=== PATIENT | female | born 1970 | race Caucasian/White ===

== ENCOUNTER 2017-12-24 08:36 | Emergency (ER) | payer OTHER ==
[~2017-12-24] VITALS: Ht 165.1 cm; Wt 47.6 kg
[~2017-12-24 08:36] MED LIST: ACET325 PO; ACET500 PO; ALBU90OI INH; ALBU90OI6 INH; ALBU90OI61 INH; ASPI325 PO; ATOR10 PO; AZIT250 PO; BAYER CHEWABLE81 MG PO; BENZ100A PO; CEPH500 PO; CLOP75 PO; CRANBERRY PO; FOLI1 PO; HYDACE5; HYDACE5 PO; HYDACE5325 PO; IBUP400; IBUP800 PO; LISI5 PO; METF500 PO; MUPI2TO TOP; NEOCOLOTSU BOTHEARS; Norco 5-325 Ta1 EACH PO; OXYACE5T PO; PRED20 PO; Prednisone20 MG PO; RXHYD5325 PO; SULTRIDS PO; THIA100 PO; Zithromax250 MG PO
[2017-12-24] MEDS ORDERED: LORA.5 PO (08:50)
[2017-12-24] MEDS ORDERED: ALPR.25 PO (08:51)
[2017-12-24] MEDS ORDERED: TRAM50 PO (08:51)
[2017-12-24] MEDS ORDERED: Bactrim Ds Tab1 EACH PO (09:27)
[2017-12-24] MEDS ORDERED: Percocet 10-321 EACH PO (09:27)
== END 2017-12-24 10:39 | disposition home or self-care (01) ==
LOC: ER 08:36
DX: K13.0 Diseases of lips (principal); F41.9 Anxiety disorder, unspecified; I10 Essential (primary) hypertension; J44.9 Chronic obstructive pulmonary disease, unspecified; F17.210 Nicotine dependence, cigarettes, uncomplicated; Z98.51 Tubal ligation status; Z86.73 Personal history of transient ischemic attack (TIA), and cerebral infarction without residual deficits; Z88.5 Allergy status to narcotic agent; Z91.09 Other allergy status, other than to drugs and biological substances; Z79.899 Other long term (current) drug therapy
CPT/HCPCS: 96372; 99283; J1885

== ENCOUNTER 2017-12-27 00:25 | Emergency (ER) | payer OTHER ==
[~2017-12-27] VITALS: Ht 167.6 cm; Wt 49.9 kg
[~2017-12-27 00:25] MED LIST changes: +ALPR.25 PO; +Bactrim Ds Tab1 EACH PO; +LORA.5 PO; +Percocet 10-321 EACH PO; +TRAM50 PO
[2017-12-27 01:58] LABS: BASOPHILS ABSOLUTE AUTO 0.05 K/mm3 (0.00-0.23); BASOPHILS PERCENT AUTO 0 % (0-2); EOSINOPHILS ABSOLUTE AUTO 0.28 K/mm3 (0.00-0.68); EOSINOPHILS PERCENT AUTO 3 % (0-6); IMMATURE GRAN ABSOLUTE AUTO 0.04 K/mm3 (0.00-0.10); IMMATURE GRAN PERCENT AUTO 0 % (0-1); LYMPHOCYTES ABSOLUTE AUTO 1.98 K/mm3 (0.84-5.20); LYMPHOCYTES PERCENT AUTO 18 % (21-46); MONOCYTES ABSOLUTE AUTO 0.74 K/mm3 (0.16-1.47); MONOCYTES PERCENT AUTO 7 % (4-13); Mean Corpuscular HGB 26.8 pg (26.0-34.0); Mean Corpuscular HGB Conc 33.3 g/dL (31.5-36.5); Mean Corpuscular Volume 81 fL (80-100); Mean Platelet Volume 10.5 fL (9.1-12.4); NEUTROPHILS PERCENT AUTO 72 % (41-73); Platelet Count 310 K/mm3 (150-400); RDW Coefficient Variation 15.6 % (11.7-14.2); RDW Standard Deviation 45.3 fL (35.1-46.3); White Blood Cell Count 11.19 K/mm3 (4.00-11.30)
[2017-12-27 02:16] LABS: Alanine Aminotransfer (ALT/SGP 13 U/L (12-78); Albumin, Blood 3.2 g/dL (3.4-5.0); Albumin/Globulin Ratio 0.9 (0.8-1.8); Alk Phos 111 U/L (50-136); Anion Gap 9 mmol/L (6-16); Aspartate Aminotrans (AST/SGOT 6 U/L (12-37); Bilirubin, Total 0.5 mg/dL (0.1-1.0); Blood Urea Nitrogen 8 mg/dL (8-24); Bun/Creatinine Ratio 14.9 (12.0-20.0); CO2, Blood 23 mmol/L (21-32); Calcium, Blood 8.6 mg/dL (8.5-10.1); Chloride, Blood 101 mmol/L (98-108); Creatinine, Blood 0.54 mg/dL (0.40-1.00); Globulin, Blood 3.7 g/dL (2.2-4.0); Glomerular Filtration Rate >60 (60-); Glucose, Blood 402 mg/dL (70-99); Potassium, Blood 3.6 mmol/L (3.5-5.5); Sodium, Blood 133 mmol/L (136-145); Total Protein, Blood 6.9 g/dL (6.4-8.2)
[2017-12-27 02:25] LABS: Source, Urine Clean Catch
[2017-12-27 02:31] LABS: Bilirubin, Urine Neg (Neg); Blood, Urine 1+ (Neg); Glucose Qualitative, Urine 4+ (Neg); Ketones, Urine 1+ (Neg); Leukocyte Esterase, Urine Neg (Neg); Nitrite, Urine Neg (Neg); Protein, Urine Neg (Neg); Urobilinogen, Urine NORM (Normal)
[2017-12-27 02:37] LABS: Appearance, Urine Clear (Clear); Bacteria Mod /hpf; Color, Urine Yellow (P-Yellow); Red Blood Cells, Urine 0-2 /hpf (0-2); Squamous Epithelial Cells Not Seen /hpf (Few); White Blood Cells, Urine 0-2 /hpf (0-5)
[2017-12-27] MEDS ORDERED: MUPI1NAS (02:55)
[2017-12-27 03:24] LABS: U Amphetamine Screen DETECTED; U Barbituate Screen Not Detected; U Benzodiazapine Screen DETECTED; U Buprenorphine Screen Not Detected; U Cannabinoids Screen Not Detected; U Cocaine Screen Not Detected; U Methadone Screen Not Detected; U Methamphetamine Screen DETECTED; U Opiates Screen Not Detected; U Oxycodone Screen DETECTED; U Phencyclidine Screen Not Detected; U Propoxyphene Screen Not Detected
[2017-12-27] MEDS ORDERED: Bactrim Ds Tab1 EACH PO (20:24)
[2017-12-27] MEDS ORDERED: CEPH500 PO (20:24)
[2017-12-28] MEDS ORDERED: [UNRECOGNIZED DRUG - CODE] PO (14:54)
[2017-12-28] MEDS ORDERED: [UNRECOGNIZED DRUG - CODE] (14:56)
[2017-12-28] MEDS ORDERED: [UNRECOGNIZED DRUG - CODE] PO (14:58)
== END 2017-12-27 05:25 | disposition home or self-care (01) ==
LOC: ER 00:25
PROVIDERS: Emergency Medicine
DX: S00.561A Insect bite (nonvenomous) of lip, initial encounter (principal); Z88.5 Allergy status to narcotic agent; Z79.899 Other long term (current) drug therapy; I10 Essential (primary) hypertension; J44.9 Chronic obstructive pulmonary disease, unspecified; F17.210 Nicotine dependence, cigarettes, uncomplicated; W57.XXXA Bitten or stung by nonvenomous insect and other nonvenomous arthropods, initial encounter
CPT/HCPCS: 36415; 71046; 80053; 81001; 83605; 85025; 87040; 87086; 96374; 99283; J1885; P9612

== ENCOUNTER 2017-12-27 17:12 | Emergency (ER) | payer OTHER ==
[~2017-12-27] VITALS: Ht 167.6 cm; Wt 45.4 kg
[~2017-12-27 17:12] MED LIST changes: +MUPI1NAS
[2017-12-27] MEDS ORDERED: Bactrim Ds Tab1 EACH PO (20:24)
[2017-12-27] MEDS ORDERED: CEPH500 PO (20:24)
[2017-12-28] MEDS ORDERED: [UNRECOGNIZED DRUG - CODE] PO (14:54)
[2017-12-28] MEDS ORDERED: [UNRECOGNIZED DRUG - CODE] (14:56)
[2017-12-28] MEDS ORDERED: [UNRECOGNIZED DRUG - CODE] PO (14:58)
== END 2017-12-27 21:00 | disposition home or self-care (01) ==
LOC: ER 17:12
DX: L03.211 Cellulitis of face (principal); I10 Essential (primary) hypertension; J44.9 Chronic obstructive pulmonary disease, unspecified; Z88.5 Allergy status to narcotic agent; Z79.899 Other long term (current) drug therapy; F17.200 Nicotine dependence, unspecified, uncomplicated
CPT/HCPCS: 99283

== ENCOUNTER 2017-12-28 10:06 | Inpatient (IN) | payer OTHER ==
[~2017-12-28] VITALS: Ht 167.6 cm; Wt 55.8 kg
[2017-12-28 11:34] LABS: BASOPHILS ABSOLUTE AUTO 0.06 K/mm3 (0.00-0.23); BASOPHILS PERCENT AUTO 0 % (0-2); EOSINOPHILS ABSOLUTE AUTO 0.05 K/mm3 (0.00-0.68); EOSINOPHILS PERCENT AUTO 0 % (0-6); Hematocrit 35.7 % (33.0-51.0); Hemoglobin 11.7 g/dL (11.5-16.0); IMMATURE GRAN ABSOLUTE AUTO 0.04 K/mm3 (0.00-0.10); IMMATURE GRAN PERCENT AUTO 0 % (0-1); LYMPHOCYTES ABSOLUTE AUTO 1.71 K/mm3 (0.84-5.20); LYMPHOCYTES PERCENT AUTO 13 % (21-46); MONOCYTES ABSOLUTE AUTO 0.69 K/mm3 (0.16-1.47); MONOCYTES PERCENT AUTO 5 % (4-13); Mean Corpuscular HGB 26.5 pg (26.0-34.0); Mean Corpuscular HGB Conc 32.8 g/dL (31.5-36.5); Mean Corpuscular Volume 81 fL (80-100); NEUTROPHILS ABSOLUTE AUTO 11.18 K/mm3 (1.96-9.15); NEUTROPHILS PERCENT AUTO 81 % (41-73); Platelet Count 334 K/mm3 (150-400); RDW Coefficient Variation 15.5 % (11.7-14.2); RDW Standard Deviation 46.2 fL (35.1-46.3); Red Blood Cell Count 4.41 M/mm3 (3.80-5.20); White Blood Cell Count 13.73 K/mm3 (4.00-11.30)
[2017-12-28 11:48] LABS: Alanine Aminotransfer (ALT/SGP 14 U/L (12-78); Albumin, Blood 3.3 g/dL (3.4-5.0); Albumin/Globulin Ratio 0.8 (0.8-1.8); Alk Phos 120 U/L (50-136); Anion Gap 10 mmol/L (6-16); Aspartate Aminotrans (AST/SGOT 7 U/L (12-37); Bilirubin, Total 0.5 mg/dL (0.1-1.0); Blood Urea Nitrogen 7 mg/dL (8-24); Bun/Creatinine Ratio 13.3 (12.0-20.0); CO2, Blood 23 mmol/L (21-32); Calcium, Blood 8.7 mg/dL (8.5-10.1); Chloride, Blood 100 mmol/L (98-108); Creatinine, Blood 0.53 mg/dL (0.40-1.00); Glomerular Filtration Rate >60 (60-); Glucose, Blood 386 mg/dL (70-99); Potassium, Blood 3.8 mmol/L (3.5-5.5); Sodium, Blood 133 mmol/L (136-145); Total Protein, Blood 7.3 g/dL (6.4-8.2)
[2017-12-28] MEDS ORDERED: [UNRECOGNIZED DRUG - CODE] PO (14:54)
[2017-12-28] MEDS ORDERED: [UNRECOGNIZED DRUG - CODE] (14:56)
[2017-12-28] MEDS ORDERED: [UNRECOGNIZED DRUG - CODE] PO (14:58)
[2017-12-29 05:02] LABS: BASOPHILS ABSOLUTE AUTO 0.03 K/mm3 (0.00-0.23); BASOPHILS PERCENT AUTO 0 % (0-2); EOSINOPHILS PERCENT AUTO 0 % (0-6); Hematocrit 32.4 % (33.0-51.0); Hemoglobin 10.4 g/dL (11.5-16.0); IMMATURE GRAN ABSOLUTE AUTO 0.06 K/mm3 (0.00-0.10); IMMATURE GRAN PERCENT AUTO 1 % (0-1); LYMPHOCYTES ABSOLUTE AUTO 1.48 K/mm3 (0.84-5.20); LYMPHOCYTES PERCENT AUTO 13 % (21-46); MONOCYTES ABSOLUTE AUTO 0.63 K/mm3 (0.16-1.47); MONOCYTES PERCENT AUTO 5 % (4-13); Mean Corpuscular HGB 26.6 pg (26.0-34.0); Mean Corpuscular HGB Conc 32.1 g/dL (31.5-36.5); Mean Corpuscular Volume 83 fL (80-100); Mean Platelet Volume 10.5 fL (9.1-12.4); NEUTROPHILS ABSOLUTE AUTO 9.46 K/mm3 (1.96-9.15); NEUTROPHILS PERCENT AUTO 81 % (41-73); Platelet Count 340 K/mm3 (150-400); RDW Coefficient Variation 15.7 % (11.7-14.2); RDW Standard Deviation 47.2 fL (35.1-46.3); Red Blood Cell Count 3.91 M/mm3 (3.80-5.20); White Blood Cell Count 11.66 K/mm3 (4.00-11.30)
[2017-12-29 05:41] LABS: Anion Gap 9 mmol/L (6-16); Blood Urea Nitrogen 16 mg/dL (8-24); Bun/Creatinine Ratio 29.1 (12.0-20.0); CO2, Blood 21 mmol/L (21-32); Calcium, Blood 8.7 mg/dL (8.5-10.1); Chloride, Blood 107 mmol/L (98-108); Creatinine, Blood 0.55 mg/dL (0.40-1.00); Glomerular Filtration Rate >60 (60-); Glucose, Blood 266 mg/dL (70-99); Potassium, Blood 4.2 mmol/L (3.5-5.5); Sodium, Blood 137 mmol/L (136-145)
[2017-12-30 17:39] LABS: U Amphetamine Screen Not Detected; U Barbituate Screen Not Detected; U Benzodiazapine Screen DETECTED; U Buprenorphine Screen Not Detected; U Cannabinoids Screen Not Detected; U Cocaine Screen Not Detected; U Methadone Screen Not Detected; U Methamphetamine Screen Not Detected; U Opiates Screen DETECTED; U Oxycodone Screen Not Detected; U Phencyclidine Screen Not Detected; U Propoxyphene Screen Not Detected
[2017-12-31 04:58] LABS: BASOPHILS ABSOLUTE AUTO 0.03 K/mm3 (0.00-0.23); BASOPHILS PERCENT AUTO 1 % (0-2); EOSINOPHILS ABSOLUTE AUTO 0.24 K/mm3 (0.00-0.68); EOSINOPHILS PERCENT AUTO 4 % (0-6); Hematocrit 28.7 % (33.0-51.0); Hemoglobin 9.4 g/dL (11.5-16.0); IMMATURE GRAN ABSOLUTE AUTO 0.02 K/mm3 (0.00-0.10); IMMATURE GRAN PERCENT AUTO 0 % (0-1); LYMPHOCYTES ABSOLUTE AUTO 2.57 K/mm3 (0.84-5.20); LYMPHOCYTES PERCENT AUTO 41 % (21-46); MONOCYTES ABSOLUTE AUTO 0.36 K/mm3 (0.16-1.47); MONOCYTES PERCENT AUTO 6 % (4-13); Mean Corpuscular HGB 27.1 pg (26.0-34.0); Mean Corpuscular HGB Conc 32.8 g/dL (31.5-36.5); Mean Corpuscular Volume 83 fL (80-100); Mean Platelet Volume 9.9 fL (9.1-12.4); NEUTROPHILS ABSOLUTE AUTO 3.06 K/mm3 (1.96-9.15); NEUTROPHILS PERCENT AUTO 49 % (41-73); Platelet Count 316 K/mm3 (150-400); RDW Coefficient Variation 15.9 % (11.7-14.2); RDW Standard Deviation 48.4 fL (35.1-46.3); Red Blood Cell Count 3.47 M/mm3 (3.80-5.20); White Blood Cell Count 6.28 K/mm3 (4.00-11.30)
[2017-12-31 05:22] LABS: Alanine Aminotransfer (ALT/SGP 12 U/L (12-78); Albumin, Blood 2.3 g/dL (3.4-5.0); Albumin/Globulin Ratio 0.7 (0.8-1.8); Alk Phos 73 U/L (50-136); Anion Gap 8 mmol/L (6-16); Aspartate Aminotrans (AST/SGOT 7 U/L (12-37); Bilirubin, Total 0.2 mg/dL (0.1-1.0); Blood Urea Nitrogen 10 mg/dL (8-24); Bun/Creatinine Ratio 18.6 (12.0-20.0); CO2, Blood 25 mmol/L (21-32); Chloride, Blood 106 mmol/L (98-108); Creatinine, Blood 0.54 mg/dL (0.40-1.00); Globulin, Blood 3.1 g/dL (2.2-4.0); Glomerular Filtration Rate >60 (60-); Glucose, Blood 130 mg/dL (70-99); Potassium, Blood 4.1 mmol/L (3.5-5.5); Sodium, Blood 139 mmol/L (136-145); Total Protein, Blood 5.4 g/dL (6.4-8.2)
[2017-12-31] MEDS ORDERED: METF850 PO (09:16)
[2017-12-31] MEDS ORDERED: TRAM50 PO (09:16)
[2017-12-31] MEDS ORDERED: FAMO20 PO (09:17)
[2017-12-31] MEDS ORDERED: Naproxen500 MG PO (09:18)
[2017-12-31] MEDS ORDERED: Clindamycin HC300 MG PO (09:18)
[2017-12-31] MEDS ORDERED: MIRT30ST MM (09:18)
[2018-01-03] MEDS ORDERED: Bactrim Ds Tab1 EACH PO (14:15)
[2018-01-03] MEDS ORDERED: TEMA15 PO (14:16)
== END 2018-01-03 16:45 | disposition home or self-care (01) | DRG 872 ==
LOC: ER 10:06 → MEDS 14:38
PROVIDERS: Emergency Medicine; Internal Medicine
DX: A41.9 Sepsis, unspecified organism (principal); E11.9 Type 2 diabetes mellitus without complications; L03.211 Cellulitis of face; F15.10 Other stimulant abuse, uncomplicated; F17.210 Nicotine dependence, cigarettes, uncomplicated; B95.62 Methicillin resistant Staphylococcus aureus infection as the cause of diseases classified elsewhere; I10 Essential (primary) hypertension; Z86.73 Personal history of transient ischemic attack (TIA), and cerebral infarction without residual deficits; Z59.0 Homelessness; J44.9 Chronic obstructive pulmonary disease, unspecified; Z79.84 Long term (current) use of oral hypoglycemic drugs
CPT/HCPCS: 36415; 71046; 80048; 80053; 81001; 82947; 83036; 83605; 85025; 87040; 87070; 87075; 87077; 87086; 87147; 87186; 87205; 94664; 94667; 94760; 96365; 96374; 96375; 97165; 97535; 98960; 99283; 99285; 99407; G8987; G8988; G8989; J1100; J1170; J1650; J1885; J2405; J7030; P9612

== ENCOUNTER 2021-07-17 02:49 | Emergency (ER) | payer OTHER ==
[~2021-07-17] VITALS: Ht 165.1 cm; Wt 52.2 kg
[~2021-07-17 02:49] MED LIST changes: +Clindamycin HC300 MG PO; +FAMO20 PO; +METF850 PO; +MIRT30ST MM; +Naproxen500 MG PO; +TEMA15 PO; +[UNRECOGNIZED DRUG - CODE]; +[UNRECOGNIZED DRUG - CODE] PO; +[UNRECOGNIZED DRUG - CODE] PO
== END 2021-07-17 04:47 | disposition left against medical advice (07) ==
LOC: ER 02:49
DX: Z53.21 Procedure and treatment not carried out due to patient leaving prior to being seen by health care provider (principal)

== ENCOUNTER 2021-07-19 07:12 | Emergency (ER) | payer OTHER ==
[~2021-07-19] VITALS: Ht 157.5 cm; Wt 52.2 kg
== END 2021-07-19 10:09 | disposition home or self-care (01) ==
LOC: ER 07:12
DX: U07.1 COVID-19 (principal); J44.9 Chronic obstructive pulmonary disease, unspecified; I10 Essential (primary) hypertension; E11.9 Type 2 diabetes mellitus without complications; F17.210 Nicotine dependence, cigarettes, uncomplicated; Z86.73 Personal history of transient ischemic attack (TIA), and cerebral infarction without residual deficits; Z88.5 Allergy status to narcotic agent; Z88.8 Allergy status to other drugs, medicaments and biological substances; Z79.899 Other long term (current) drug therapy
CPT/HCPCS: 71045; 99283-25; M0243; Q0243

== ENCOUNTER 2021-07-29 00:15 | Emergency (ER) | payer OTHER ==
[~2021-07-29] VITALS: Ht 167.6 cm; Wt 49.9 kg
== END 2021-07-29 02:33 | disposition home or self-care (01) ==
LOC: ER 00:15
DX: U07.1 COVID-19 (principal); I10 Essential (primary) hypertension; J44.9 Chronic obstructive pulmonary disease, unspecified; F17.210 Nicotine dependence, cigarettes, uncomplicated; Z79.899 Other long term (current) drug therapy
CPT/HCPCS: 99283

== ENCOUNTER 2021-09-05 23:13 | Emergency (ER) | payer OTHER ==
[~2021-09-05] VITALS: Ht 167.6 cm; Wt 56.7 kg
[2021-09-05] MEDS ORDERED: GABA100 PO (23:21)
[2021-09-05] MEDS ORDERED: METF500 PO (23:21)
[2021-09-05] MEDS ORDERED: ATOR10 PO (23:22)
[2021-09-05] MEDS ORDERED: Lisinopril2.5 MG PO (23:22)
== END 2021-09-06 03:15 | disposition home or self-care (01) ==
LOC: ER 23:13
DX: F41.9 Anxiety disorder, unspecified (principal); F43.9 Reaction to severe stress, unspecified; Z88.5 Allergy status to narcotic agent; Z88.8 Allergy status to other drugs, medicaments and biological substances; Z79.899 Other long term (current) drug therapy; Z79.84 Long term (current) use of oral hypoglycemic drugs; I10 Essential (primary) hypertension; J44.9 Chronic obstructive pulmonary disease, unspecified; F17.200 Nicotine dependence, unspecified, uncomplicated
CPT/HCPCS: 71045; 93005; 93010; 99284-25; A9270

== ENCOUNTER 2021-09-11 20:20 | Emergency (ER) | payer OTHER ==
[~2021-09-11] VITALS: Ht 167.6 cm; Wt 49.9 kg
[~2021-09-11 20:20] MED LIST changes: +GABA100 PO; +Lisinopril2.5 MG PO
[2021-09-11 22:29] LABS: U Amphetamine Screen DETECTED; U Barbituate Screen Not Detected; U Benzodiazapine Screen Not Detected; U Buprenorphine Screen Not Detected; U Cannabinoids Screen Not Detected; U Cocaine Screen Not Detected; U Methadone Screen Not Detected; U Methamphetamine Screen DETECTED; U Opiates Screen Not Detected; U Oxycodone Screen Not Detected; U Phencyclidine Screen Not Detected; U Propoxyphene Screen Not Detected
== END 2021-09-11 23:20 | disposition home or self-care (01) ==
LOC: ER 20:20
PROVIDERS: Student in an Organized Health Care Education/Training Program
DX: M54.50 Low back pain, unspecified (principal); F15.90 Other stimulant use, unspecified, uncomplicated; Z88.5 Allergy status to narcotic agent; Z91.048 Other nonmedicinal substance allergy status; Z79.84 Long term (current) use of oral hypoglycemic drugs; Z79.899 Other long term (current) drug therapy; I10 Essential (primary) hypertension; J44.9 Chronic obstructive pulmonary disease, unspecified; F17.200 Nicotine dependence, unspecified, uncomplicated; W19.XXXA Unspecified fall, initial encounter
CPT/HCPCS: 36415; 51701; 72220; 93005; 93010; 99284-25; G0480

== ENCOUNTER 2021-09-14 21:01 | Emergency (ER) | payer OTHER ==
[~2021-09-14] VITALS: Ht 165.1 cm; Wt 49.9 kg
== END 2021-09-15 00:10 | disposition home or self-care (01) ==
LOC: ER 21:01
DX: Z00.00 Encounter for general adult medical examination without abnormal findings (principal); F15.10 Other stimulant abuse, uncomplicated; I10 Essential (primary) hypertension; J44.9 Chronic obstructive pulmonary disease, unspecified; Z86.73 Personal history of transient ischemic attack (TIA), and cerebral infarction without residual deficits; Z88.5 Allergy status to narcotic agent; Z91.048 Other nonmedicinal substance allergy status; Z79.84 Long term (current) use of oral hypoglycemic drugs; Z79.899 Other long term (current) drug therapy; F17.200 Nicotine dependence, unspecified, uncomplicated
CPT/HCPCS: 99283

== ENCOUNTER 2021-10-02 17:11 | Emergency (ER) | payer OTHER ==
[~2021-10-02] VITALS: Ht 170.2 cm; Wt 45.4 kg
[2021-10-02 17:50] LABS: BASOPHILS ABSOLUTE AUTO 0.05 K/mm3 (0.00-0.23); BASOPHILS PERCENT AUTO 1 % (0-2); EOSINOPHILS ABSOLUTE AUTO 0.24 K/mm3 (0.00-0.68); EOSINOPHILS PERCENT AUTO 3 % (0-6); Hematocrit 39.4 % (33.0-51.0); Hemoglobin 13.2 g/dL (11.5-16.0); IMMATURE GRAN ABSOLUTE AUTO 0.01 K/mm3 (0.00-0.10); IMMATURE GRAN PERCENT AUTO 0 % (0-1); LYMPHOCYTES ABSOLUTE AUTO 2.81 K/mm3 (0.84-5.20); LYMPHOCYTES PERCENT AUTO 38 % (21-46); MONOCYTES PERCENT AUTO 7 % (4-13); Mean Corpuscular HGB 28.8 pg (26.0-34.0); Mean Corpuscular HGB Conc 33.5 g/dL (31.5-36.5); Mean Corpuscular Volume 86 fL (80-100); Mean Platelet Volume 9.7 fL (9.1-12.4); NEUTROPHILS ABSOLUTE AUTO 3.75 K/mm3 (1.96-9.15); NEUTROPHILS PERCENT AUTO 51 % (41-73); Platelet Count 358 K/mm3 (150-400); RDW Coefficient Variation 12.7 % (11.7-14.2); RDW Standard Deviation 40.1 fL (35.1-46.3); Red Blood Cell Count 4.59 M/mm3 (3.80-5.20); White Blood Cell Count 7.36 K/mm3 (4.00-11.30)
[2021-10-02 18:07] LABS: Alanine Aminotransfer (ALT/SGP 17 U/L (12-78); Albumin/Globulin Ratio 0.7 (0.8-1.8); Alk Phos 192 U/L (50-136); Anion Gap 6 mmol/L (6-16); Aspartate Aminotrans (AST/SGOT 13 U/L (12-37); Bilirubin, Total 0.2 mg/dL (0.1-1.0); Blood Urea Nitrogen 12 mg/dL (8-24); Bun/Creatinine Ratio 19.6 (12.0-20.0); CO2, Blood 26 mmol/L (21-32); Calcium, Blood 9.3 mg/dL (8.5-10.1); Chloride, Blood 99 mmol/L (98-108); Creatinine, Blood 0.61 mg/dL (0.40-1.00); Globulin, Blood 4.5 g/dL (2.2-4.0); Glomerular Filtration Rate >60 (60-); Glucose, Blood 370 mg/dL (70-99); Potassium, Blood 4.1 mmol/L (3.5-5.5); Sodium, Blood 131 mmol/L (136-145); Total Protein, Blood 7.5 g/dL (6.4-8.2)
== END 2021-10-02 19:05 | disposition home or self-care (01) ==
LOC: ER 17:11
PROVIDERS: Student in an Organized Health Care Education/Training Program
DX: E11.65 Type 2 diabetes mellitus with hyperglycemia (principal); M54.9 Dorsalgia, unspecified; G89.29 Other chronic pain; Z88.5 Allergy status to narcotic agent; Z79.84 Long term (current) use of oral hypoglycemic drugs; Z79.899 Other long term (current) drug therapy; I10 Essential (primary) hypertension; J44.9 Chronic obstructive pulmonary disease, unspecified; Z86.73 Personal history of transient ischemic attack (TIA), and cerebral infarction without residual deficits; F17.210 Nicotine dependence, cigarettes, uncomplicated
CPT/HCPCS: 36415; 71045; 80053; 85025; 93005; 93010; 99284-25

== ENCOUNTER 2021-10-08 22:24 | Emergency (ER) | payer OTHER ==
[~2021-10-08] VITALS: Ht 162.6 cm; Wt 45.4 kg
[2021-10-08 23:55] LABS: Alanine Aminotransfer (ALT/SGP 16 U/L (12-78); Albumin, Blood 2.7 g/dL (3.4-5.0); Albumin/Globulin Ratio 0.6 (0.8-1.8); Alk Phos 163 U/L (50-136); Anion Gap 8 mmol/L (6-16); Aspartate Aminotrans (AST/SGOT 21 U/L (12-37); Bilirubin, Total 0.3 mg/dL (0.1-1.0); Blood Urea Nitrogen 10 mg/dL (8-24); Bun/Creatinine Ratio 21.1 (12.0-20.0); CO2, Blood 23 mmol/L (21-32); Calcium, Blood 9.6 mg/dL (8.5-10.1); Chloride, Blood 104 mmol/L (98-108); Creatinine, Blood 0.47 mg/dL (0.40-1.00); Globulin, Blood 4.8 g/dL (2.2-4.0); Glomerular Filtration Rate >60 (60-); Glucose, Blood 276 mg/dL (70-99); Potassium, Blood 3.9 mmol/L (3.5-5.5); Sodium, Blood 135 mmol/L (136-145); Total Protein, Blood 7.5 g/dL (6.4-8.2); Troponin I <0.015 ng/mL (0.000-0.040)
[2021-10-09 00:15] LABS: BASOPHILS ABSOLUTE AUTO 0.07 K/mm3 (0.00-0.23); BASOPHILS PERCENT AUTO 1 % (0-2); EOSINOPHILS ABSOLUTE AUTO 0.21 K/mm3 (0.00-0.68); EOSINOPHILS PERCENT AUTO 2 % (0-6); Hematocrit 39.7 % (33.0-51.0); Hemoglobin 13.2 g/dL (11.5-16.0); IMMATURE GRAN ABSOLUTE AUTO 0.03 K/mm3 (0.00-0.10); IMMATURE GRAN PERCENT AUTO 0 % (0-1); LYMPHOCYTES ABSOLUTE AUTO 2.57 K/mm3 (0.84-5.20); LYMPHOCYTES PERCENT AUTO 25 % (21-46); MONOCYTES ABSOLUTE AUTO 0.65 K/mm3 (0.16-1.47); MONOCYTES PERCENT AUTO 6 % (4-13); Mean Corpuscular HGB 28.6 pg (26.0-34.0); Mean Corpuscular HGB Conc 33.2 g/dL (31.5-36.5); Mean Corpuscular Volume 86 fL (80-100); Mean Platelet Volume 9.8 fL (9.1-12.4); NEUTROPHILS ABSOLUTE AUTO 6.65 K/mm3 (1.96-9.15); NEUTROPHILS PERCENT AUTO 65 % (41-73); Platelet Count 373 K/mm3 (150-400); Red Blood Cell Count 4.61 M/mm3 (3.80-5.20); White Blood Cell Count 10.18 K/mm3 (4.00-11.30)
[2021-10-09 01:18] LABS: Influenza A, PCR NEGATIVE (NEGATIVE); Influenza B, PCR NEGATIVE (NEGATIVE); Resp Syncytial Virus, PCR NEGATIVE (NEGATIVE); SARS-Cov-2 (COVID-19) PCR, MMC NEGATIVE (NEGATIVE)
[2021-10-09 01:54] LABS: U Amphetamine Screen DETECTED; U Barbituate Screen Not Detected; U Benzodiazapine Screen DETECTED; U Buprenorphine Screen Not Detected; U Cannabinoids Screen DETECTED; U Cocaine Screen Not Detected; U Methadone Screen Not Detected; U Methamphetamine Screen DETECTED; U Opiates Screen DETECTED; U Oxycodone Screen Not Detected; U Phencyclidine Screen Not Detected; U Propoxyphene Screen Not Detected
== END 2021-10-09 01:35 | disposition home or self-care (01) ==
LOC: ER 22:24
PROVIDERS: Emergency Medicine
DX: G89.4 Chronic pain syndrome (principal); M54.9 Dorsalgia, unspecified; J44.9 Chronic obstructive pulmonary disease, unspecified; I10 Essential (primary) hypertension; F17.200 Nicotine dependence, unspecified, uncomplicated; Z20.822 Contact with and (suspected) exposure to COVID-19; Z88.5 Allergy status to narcotic agent; Z79.899 Other long term (current) drug therapy; Z79.84 Long term (current) use of oral hypoglycemic drugs; Z86.73 Personal history of transient ischemic attack (TIA), and cerebral infarction without residual deficits
CPT/HCPCS: 0241U; 71045; 80053; 83880; 84484; 85025; 93005; 93010; 96372; 99285-25; J1885

== ENCOUNTER 2021-10-14 23:10 | Emergency (ER) | payer OTHER ==
[~2021-10-14] VITALS: Ht 162.6 cm; Wt 45.4 kg
[2021-10-15] LABS: Chloride (POC) 98 mmol/L (98-108); Creatinine (POC) 0.4 mg/dL (0.6-1.0); Glucose (ISTAT POC) 357 mg/dL (70-99); Hemoglobin (POC) 14.3 g/dL (12.0-16.0); Sodium (POC) 134 mmol/L (135-148); Total CO2 (POC) 27 mmol/L (21-32)
== END 2021-10-15 03:30 | disposition home or self-care (01) ==
LOC: ER 23:10
PROVIDERS: Emergency Medicine
DX: M54.9 Dorsalgia, unspecified (principal); G89.29 Other chronic pain; I10 Essential (primary) hypertension; J44.9 Chronic obstructive pulmonary disease, unspecified; Z86.73 Personal history of transient ischemic attack (TIA), and cerebral infarction without residual deficits; F17.200 Nicotine dependence, unspecified, uncomplicated; Z86.16 Personal history of COVID-19; Z88.5 Allergy status to narcotic agent; Z79.899 Other long term (current) drug therapy; Z79.84 Long term (current) use of oral hypoglycemic drugs
CPT/HCPCS: 36415; 71260; 80047; 85014; 99284-25; A9270; Q9967

== ENCOUNTER 2021-11-23 18:25 | Emergency (ER) | payer OTHER ==
[~2021-11-23] VITALS: Ht 165.1 cm; Wt 54.4 kg
[2021-11-23 19:18] LABS: BASOPHILS ABSOLUTE AUTO 0.06 K/mm3 (0.00-0.23); BASOPHILS PERCENT AUTO 1 % (0-2); EOSINOPHILS ABSOLUTE AUTO 0.18 K/mm3 (0.00-0.68); EOSINOPHILS PERCENT AUTO 2 % (0-6); Hematocrit 39.4 % (33.0-51.0); Hemoglobin 13.6 g/dL (11.5-16.0); IMMATURE GRAN ABSOLUTE AUTO 0.02 K/mm3 (0.00-0.10); IMMATURE GRAN PERCENT AUTO 0 % (0-1); LYMPHOCYTES ABSOLUTE AUTO 2.41 K/mm3 (0.84-5.20); LYMPHOCYTES PERCENT AUTO 26 % (21-46); MONOCYTES ABSOLUTE AUTO 0.64 K/mm3 (0.16-1.47); MONOCYTES PERCENT AUTO 7 % (4-13); Mean Corpuscular HGB 28.2 pg (26.0-34.0); Mean Corpuscular HGB Conc 34.5 g/dL (31.5-36.5); Mean Corpuscular Volume 82 fL (80-100); Mean Platelet Volume 9.8 fL (9.1-12.4); NEUTROPHILS ABSOLUTE AUTO 5.96 K/mm3 (1.96-9.15); NEUTROPHILS PERCENT AUTO 64 % (41-73); Platelet Count 337 K/mm3 (150-400); RDW Coefficient Variation 13.2 % (11.7-14.2); RDW Standard Deviation 39.3 fL (35.1-46.3); Red Blood Cell Count 4.83 M/mm3 (3.80-5.20); White Blood Cell Count 9.27 K/mm3 (4.00-11.30)
[2021-11-23 19:29] LABS: Alanine Aminotransfer (ALT/SGP 17 U/L (12-78); Albumin, Blood 3.5 g/dL (3.4-5.0); Alk Phos 116 U/L (50-136); Anion Gap 9 mmol/L (6-16); Aspartate Aminotrans (AST/SGOT 11 U/L (12-37); Bilirubin, Total 0.7 mg/dL (0.1-1.0); Blood Urea Nitrogen 7 mg/dL (8-24); Bun/Creatinine Ratio 16.2 (12.0-20.0); CO2, Blood 32 mmol/L (21-32); Calcium, Blood 9.8 mg/dL (8.5-10.1); Chloride, Blood 96 mmol/L (98-108); Creatinine, Blood 0.43 mg/dL (0.40-1.00); Ethanol (Alcohol), Blood, Med <3 mg/dL; Globulin, Blood 3.5 g/dL (2.2-4.0); Glomerular Filtration Rate >60 (60-); Glucose, Blood 310 mg/dL (70-99); Potassium, Blood 2.7 mmol/L (3.5-5.5); Sodium, Blood 137 mmol/L (136-145)
[2021-11-23 20:23] LABS: U Amphetamine Screen DETECTED; U Barbituate Screen Not Detected; U Benzodiazapine Screen Not Detected; U Buprenorphine Screen Not Detected; U Cannabinoids Screen Not Detected; U Cocaine Screen Not Detected; U Methadone Screen Not Detected; U Methamphetamine Screen DETECTED; U Opiates Screen Not Detected; U Oxycodone Screen Not Detected; U Phencyclidine Screen Not Detected; U Propoxyphene Screen Not Detected
[2021-11-23] MEDS ORDERED: POTA20PAC PO (21:47)
== END 2021-11-23 23:00 | disposition home or self-care (01) ==
LOC: ER 18:25
PROVIDERS: Emergency Medicine
DX: F15.10 Other stimulant abuse, uncomplicated (principal); E87.6 Hypokalemia; Z88.5 Allergy status to narcotic agent; Z88.8 Allergy status to other drugs, medicaments and biological substances; Z79.899 Other long term (current) drug therapy; I10 Essential (primary) hypertension; J44.9 Chronic obstructive pulmonary disease, unspecified; Z86.73 Personal history of transient ischemic attack (TIA), and cerebral infarction without residual deficits; F17.200 Nicotine dependence, unspecified, uncomplicated
CPT/HCPCS: 51701; 70450; 80053; 85025; 96365; 96375; 99285-25; A9270; G0480; J2310; J3480; J7030

== ENCOUNTER 2021-12-08 09:57 | Emergency (ER) | payer OTHER ==
[~2021-12-08 09:57] MED LIST changes: +POTA20PAC PO
[2021-12-08] MEDS ORDERED: CLOTRIMAZOLE AF1524 TOP (16:58)
[2021-12-08] MEDS ORDERED: Ultram50 MG PO (19:48)
[2021-12-08] MEDS ORDERED: METF500 PO (19:48)
== END 2021-12-08 10:15 | disposition left against medical advice (07) ==
LOC: ER 09:57
DX: Z53.21 Procedure and treatment not carried out due to patient leaving prior to being seen by health care provider (principal)

== ENCOUNTER 2022-04-30 17:28 | Emergency (ER) | payer OTHER ==
[~2022-04-30] VITALS: Ht 170.2 cm; Wt 41.7 kg
[~2022-04-30 17:28] MED LIST changes: +BASAGLAR K100 UNIT/3 SC; +CLOTRIMAZOLE AF1524 TOP; +GABAPENTIN600 MG PO; +GLIP5ER PO; +LIDO700A20 TOP; +MIRT15 PO; +OLAN20 MM; +OMEP20ER PO; +Ultram50 MG PO; +[UNRECOGNIZED DRUG - CODE] PO
[2022-04-30 18:12] LABS: BASOPHILS ABSOLUTE AUTO 0.05 K/mm3 (0.00-0.23); BASOPHILS PERCENT AUTO 1 % (0-2); EOSINOPHILS ABSOLUTE AUTO 0.45 K/mm3 (0.00-0.68); EOSINOPHILS PERCENT AUTO 4 % (0-6); Hematocrit 38.5 % (33.0-51.0); Hemoglobin 12.3 g/dL (11.5-16.0); IMMATURE GRAN ABSOLUTE AUTO 0.04 K/mm3 (0.00-0.10); IMMATURE GRAN PERCENT AUTO 0 % (0-1); LYMPHOCYTES ABSOLUTE AUTO 2.39 K/mm3 (0.84-5.20); LYMPHOCYTES PERCENT AUTO 22 % (21-46); MONOCYTES ABSOLUTE AUTO 0.74 K/mm3 (0.16-1.47); MONOCYTES PERCENT AUTO 7 % (4-13); Mean Corpuscular HGB 27.8 pg (26.0-34.0); Mean Corpuscular HGB Conc 31.9 g/dL (31.5-36.5); Mean Corpuscular Volume 87 fL (80-100); Mean Platelet Volume 9.3 fL (9.1-12.4); NEUTROPHILS ABSOLUTE AUTO 7.08 K/mm3 (1.96-9.15); NEUTROPHILS PERCENT AUTO 66 % (41-73); Platelet Count 306 K/mm3 (150-400); RDW Coefficient Variation 13.6 % (11.7-14.2); RDW Standard Deviation 43.2 fL (35.1-46.3); Red Blood Cell Count 4.42 M/mm3 (3.80-5.20); White Blood Cell Count 10.75 K/mm3 (4.00-11.30)
[2022-04-30 18:15] LABS: Source, Urine Foley catheter
[2022-04-30 18:28] LABS: Appearance, Urine Cloudy (Clear); Bilirubin, Urine Neg (Neg); Blood, Urine 3+ (Neg); Color, Urine Yellow (P-Yellow); Glucose Qualitative, Urine Neg (Neg); Ketones, Urine Neg (Neg); Leukocyte Esterase, Urine Neg (Neg); Nitrite, Urine Neg (Neg); Protein, Urine 1+ (Neg); Urobilinogen, Urine NORM (Normal)
[2022-04-30 18:28] LABS: Albumin, Blood 2.8 g/dL (3.4-5.0); Albumin/Globulin Ratio 0.7 (0.8-1.8); Bilirubin, Total 0.2 mg/dL (0.1-1.0); Bun/Creatinine Ratio 30.4 (12.0-20.0); Calcium, Blood 9.1 mg/dL (8.5-10.1); Creatinine, Blood 0.53 mg/dL (0.40-1.00); Globulin, Blood 3.8 g/dL (2.2-4.0); Potassium, Blood 4.3 mmol/L (3.5-5.5); Total Protein, Blood 6.6 g/dL (6.4-8.2)
[2022-04-30] MEDS ORDERED: ALBU8HFA2 INH (18:38)
[2022-04-30] MEDS ORDERED: INSULANI (18:38)
[2022-04-30 18:56] LABS: Red Blood Cells, Urine 0-2 /hpf (0-2)
[2022-04-30 18:57] LABS: Amorphous Mod (0-Heavy); Bacteria Many /hpf; Squamous Epithelial Cells Rare /hpf (Few); Transitional Epithelial Cells Rare /hpf (0-Rare)
[2022-04-30 18:58] LABS: Triple Phosphate Crystals Many /hpf
[2022-04-30] MEDS ORDERED: CEFD300 PO (19:24)
== END 2022-04-30 20:32 | disposition home or self-care (01) ==
LOC: ER 17:28
PROVIDERS: Student in an Organized Health Care Education/Training Program
DX: N39.0 Urinary tract infection, site not specified (principal); R33.9 Retention of urine, unspecified; I10 Essential (primary) hypertension; J44.9 Chronic obstructive pulmonary disease, unspecified; Z88.5 Allergy status to narcotic agent; Z79.899 Other long term (current) drug therapy; F17.200 Nicotine dependence, unspecified, uncomplicated
CPT/HCPCS: 36415; 51702; 51798; 70450; 71045; 80053; 81001; 85025; A9270; J7030

== ENCOUNTER 2022-05-03 20:17 | Emergency (ER) | payer OTHER ==
[~2022-05-03] VITALS: Ht 172.7 cm; Wt 63.5 kg
[~2022-05-03 20:17] MED LIST changes: +ALBU8HFA2 INH; +CEFD300 PO; +INSULANI
[2022-05-03 20:42] LABS: BASOPHILS ABSOLUTE AUTO 0.05 K/mm3 (0.00-0.23); BASOPHILS PERCENT AUTO 1 % (0-2); EOSINOPHILS ABSOLUTE AUTO 0.36 K/mm3 (0.00-0.68); EOSINOPHILS PERCENT AUTO 5 % (0-6); Hematocrit 35.6 % (33.0-51.0); Hemoglobin 11.7 g/dL (11.5-16.0); IMMATURE GRAN ABSOLUTE AUTO 0.02 K/mm3 (0.00-0.10); IMMATURE GRAN PERCENT AUTO 0 % (0-1); LYMPHOCYTES ABSOLUTE AUTO 2.47 K/mm3 (0.84-5.20); LYMPHOCYTES PERCENT AUTO 32 % (21-46); MONOCYTES ABSOLUTE AUTO 0.75 K/mm3 (0.16-1.47); MONOCYTES PERCENT AUTO 10 % (4-13); Mean Corpuscular HGB 28.2 pg (26.0-34.0); Mean Corpuscular HGB Conc 32.9 g/dL (31.5-36.5); Mean Corpuscular Volume 86 fL (80-100); Mean Platelet Volume 9.9 fL (9.1-12.4); NEUTROPHILS ABSOLUTE AUTO 4.12 K/mm3 (1.96-9.15); NEUTROPHILS PERCENT AUTO 53 % (41-73); Platelet Count 321 K/mm3 (150-400); RDW Coefficient Variation 14.1 % (11.7-14.2); RDW Standard Deviation 44.2 fL (35.1-46.3); Red Blood Cell Count 4.15 M/mm3 (3.80-5.20); White Blood Cell Count 7.77 K/mm3 (4.00-11.30)
[2022-05-03 20:53] LABS: Albumin, Blood 2.5 g/dL (3.4-5.0); Albumin/Globulin Ratio 0.7 (0.8-1.8); Bilirubin, Total 0.1 mg/dL (0.1-1.0); Bun/Creatinine Ratio 34.1 (12.0-20.0); Calcium, Blood 9.2 mg/dL (8.5-10.1); Creatinine, Blood 0.5 mg/dL (0.40-1.00); Globulin, Blood 3.8 g/dL (2.2-4.0); Potassium, Blood 4.3 mmol/L (3.5-5.5); Total Protein, Blood 6.3 g/dL (6.4-8.2)
[2022-05-03 21:20] LABS: Source, Urine Voided
[2022-05-03 21:36] LABS: Bilirubin, Urine Neg (Neg); Blood, Urine 4+ (Neg); Glucose Qualitative, Urine 1+ (Neg); Ketones, Urine 1+ (Neg); Leukocyte Esterase, Urine 1+ (Neg); Nitrite, Urine Neg (Neg); Protein, Urine 1+ (Neg); Specific Gravity, Urine 1.025 (1.003-1.022); Urobilinogen, Urine NORM (Normal)
[2022-05-03 21:51] LABS: Color, Urine Yellow (P-Yellow)
[2022-05-03 21:52] LABS: Appearance, Urine Hazy (Clear)
[2022-05-03 21:53] LABS: Amorphous Heavy (0-Heavy); Bacteria Few /hpf; Red Blood Cells, Urine 0-2 /hpf (0-2); Squamous Epithelial Cells Few /hpf (Few)
== END 2022-05-04 00:21 | disposition home or self-care (01) ==
LOC: ER 20:17
PROVIDERS: Emergency Medicine
DX: R10.31 Right lower quadrant pain (principal); I10 Essential (primary) hypertension; E11.9 Type 2 diabetes mellitus without complications; J44.9 Chronic obstructive pulmonary disease, unspecified; F17.200 Nicotine dependence, unspecified, uncomplicated; Z88.5 Allergy status to narcotic agent; Z88.2 Allergy status to sulfonamides; Z79.4 Long term (current) use of insulin; Z79.899 Other long term (current) drug therapy; Z79.84 Long term (current) use of oral hypoglycemic drugs; Z86.73 Personal history of transient ischemic attack (TIA), and cerebral infarction without residual deficits
CPT/HCPCS: 51702; 74177; 80053; 81001; 83690; 85025; 93005; 93010; 99284-25; Q9967

== ENCOUNTER 2022-05-04 23:43 | Emergency (ER) | payer OTHER ==
[~2022-05-04] VITALS: Ht 167.6 cm; Wt 40.8 kg
[2022-05-05 00:48] LABS: Source, Urine Foley catheter
[2022-05-05 00:54] LABS: Appearance, Urine Clear (Clear); Bilirubin, Urine Neg (Neg); Blood, Urine 4+ (Neg); Color, Urine Yellow (P-Yellow); Glucose Qualitative, Urine Neg (Neg); Ketones, Urine Neg (Neg); Leukocyte Esterase, Urine 1+ (Neg); Nitrite, Urine Neg (Neg); Protein, Urine 1+ (Neg); Specific Gravity, Urine 1.015 (1.003-1.022); Urobilinogen, Urine NORM (Normal)
[2022-05-05 00:56] LABS: Bacteria Few /hpf; Squamous Epithelial Cells Few /hpf (Few)
== END 2022-05-05 03:18 | disposition home or self-care (01) ==
LOC: ER 23:43
PROVIDERS: Emergency Medicine
DX: R33.9 Retention of urine, unspecified (principal); I10 Essential (primary) hypertension; J44.9 Chronic obstructive pulmonary disease, unspecified; E11.9 Type 2 diabetes mellitus without complications; F17.200 Nicotine dependence, unspecified, uncomplicated
CPT/HCPCS: 51702; 51798; 81001; 87077; 87086; 87186; 99283-25

== ENCOUNTER → 2022-05-15 | Outpatient (CLI) | payer OTHER ==
[2022-05-15 19:31] LABS: Creatinine Urine 52.2 mg/dL (27.00-270.00); Protein, Urine Quantitative 61.9 mg/dL (0.0-11.9)
== END | disposition home or self-care (01) ==
LOC: LAB 14:00 → LAB SHORT 14:00 → LAB FUT 04-11 10:55 → EDSTATUS 04-11 10:55
PROVIDERS: Internal Medicine Nephrology
DX: E11.21 Type 2 diabetes mellitus with diabetic nephropathy (principal); E11.22 Type 2 diabetes mellitus with diabetic chronic kidney disease; N18.2 Chronic kidney disease, stage 2 (mild); D63.1 Anemia in chronic kidney disease; D50.9 Iron deficiency anemia, unspecified; N25.81 Secondary hyperparathyroidism of renal origin; E55.9 Vitamin D deficiency, unspecified; E78.00 Pure hypercholesterolemia, unspecified; D51.8 Other vitamin B12 deficiency anemias; D52.8 Other folate deficiency anemias; R76.9 Abnormal immunological finding in serum, unspecified; R94.5 Abnormal results of liver function studies; R94.6 Abnormal results of thyroid function studies
CPT/HCPCS: 81050; 82043; 82570; 84156

== ENCOUNTER 2022-05-21 14:58 | Emergency (ER) | payer OTHER ==
[~2022-05-21] VITALS: Ht 162.6 cm; Wt 52.2 kg
[2022-05-21] MEDS ORDERED: MIRALAX17 GM PO (15:19)
[2022-05-21] MEDS ORDERED: TAMS.4ER PO (15:19)
== END 2022-05-21 18:15 | disposition home or self-care (01) ==
LOC: ER 14:58
DX: R53.83 Other fatigue (principal); R53.1 Weakness; I10 Essential (primary) hypertension; J44.9 Chronic obstructive pulmonary disease, unspecified; E11.9 Type 2 diabetes mellitus without complications; F17.200 Nicotine dependence, unspecified, uncomplicated; Z79.899 Other long term (current) drug therapy; Z79.4 Long term (current) use of insulin
CPT/HCPCS: A9270

== ENCOUNTER 2022-07-19 05:47 | Inpatient (IN) | payer OTHER ==
[~2022-07-19] VITALS: Ht 165.1 cm; Wt 47.8 kg
[~2022-07-19 05:47] MED LIST changes: +GABA800 PO; -GABAPENTIN600 MG PO; +GLUCOPHAGE1000 M1 PO; +MIRALAX17 GM PO; -MIRT15 PO; +MIRT30 PO; +TAMS.4ER PO; -[UNRECOGNIZED DRUG - CODE] PO
[2022-07-19 06:24] LABS: Hematocrit 42.6 % (33.0-51.0); Hemoglobin 12.6 g/dL (11.5-16.0); Mean Corpuscular HGB 28.8 pg (26.0-34.0); Mean Corpuscular HGB Conc 29.6 g/dL (31.5-36.5); Mean Corpuscular Volume 97 fL (80-100); Mean Platelet Volume 9.8 fL (9.1-12.4); NRBC ABSOLUTE 0.04 K/mm3 (0.00-0.02); NRBC Auto 0.1 /100 WBC (0.0-0.2); Platelet Count 419 K/mm3 (150-400); RDW Coefficient Variation 13.9 % (11.7-14.2); RDW Standard Deviation 50.2 fL (35.1-46.3); Red Blood Cell Count 4.38 M/mm3 (3.80-5.20); White Blood Cell Count 28.14 K/mm3 (4.00-11.30)
[2022-07-19 06:26] LABS: Source, Urine Clean Catch
[2022-07-19 06:28] LABS: Base Excess Venous -16.6 mmol/L; Bicarbonate Venous 12.1 mmol/L (24.0-30.0); PCO2 Venous 52.7 mmHg (38-42); PO2 Venous 72.4 mmHg (38-42)
[2022-07-19 06:29] LABS: Albumin, Blood 3.1 g/dL (3.4-5.0); Albumin/Globulin Ratio 0.7 (0.8-1.8); Bilirubin, Total 0.2 mg/dL (0.1-1.0); Bun/Creatinine Ratio 35.2 (12.0-20.0); Calcium, Blood 9.5 mg/dL (8.5-10.1); Creatinine, Blood 0.83 mg/dL (0.40-1.00); Globulin, Blood 4.3 g/dL (2.2-4.0); Potassium, Blood 4.8 mmol/L (3.5-5.5); Total Protein, Blood 7.4 g/dL (6.4-8.2); pH Blood Venous 7.04 (7.34-7.37)
[2022-07-19 06:37] LABS: Appearance, Urine Hazy (Clear); Bilirubin, Urine Neg (Neg); Blood, Urine 5+ (Neg); Color, Urine Yellow (P-Yellow); Glucose Qualitative, Urine 3+ (Neg); Ketones, Urine Neg (Neg); Leukocyte Esterase, Urine Neg (Neg); Nitrite, Urine Neg (Neg); Protein, Urine 1+ (Neg); Urobilinogen, Urine NORM (Normal)
[2022-07-19 06:55] LABS: BAND PERCENT MAN 3 % (0-8); BASOPHILS ABSOLUTE MAN 0.28 K/mm3 (0.00-0.23); BASOPHILS PERCENT MAN 1 % (0-2); EOSINOPHILS ABSOLUTE MAN 0.56 K/mm3 (0.00-0.68); EOSINOPHILS PERCENT MAN 2 % (0-6); LYMPHOCYTES ABSOLUTE MAN 4.78 K/mm3 (0.84-5.20); LYMPHOCYTES PERCENT MAN 17 % (21-46); METAMYELOCYTE ABSOLUTE MAN 0.28 K/mm3 (0.00-0.00); METAMYELOCYTE PERCENT MAN 1 % (0-0); MONOCYTES ABSOLUTE MAN 2.25 K/mm3 (0.16-1.47); MONOCYTES PERCENT MAN 8 % (4-13); MYELOCYTE ABSOLUTE MAN 0.84 K/mm3 (0.00-0.00); MYELOCYTE PERCENT MAN 3 % (0-0); NEUTROPHILS ABSOLUTE MAN 19.13 K/mm3 (1.96-9.15); SEG NEUTROPHILS PERCENT MAN 65 % (41-73); TOTAL CELLS COUNTED 100
[2022-07-19 07:01] LABS: Red Blood Cells, Urine 25-50 /hpf (0-2); Squamous Epithelial Cells Mod /hpf (Few)
[2022-07-19 07:02] LABS: Bacteria Few /hpf
[2022-07-19 07:37] LABS: Influenza A, PCR NEGATIVE (NEGATIVE); Influenza B, PCR NEGATIVE (NEGATIVE); Resp Syncytial Virus, PCR NEGATIVE (NEGATIVE); SARS-Cov-2 (COVID-19) PCR, MMC NEGATIVE (NEGATIVE)
[2022-07-19] MEDS ORDERED: TRAM50 PO (10:29)
[2022-07-19] MEDS ORDERED: ACET500 PO (10:30)
[2022-07-19] MEDS ORDERED: NAPR500 PO (10:32)
[2022-07-19] MEDS ORDERED: SERT50 PO (10:33)
[2022-07-19 11:05] LABS: Source, Urine Foley catheter
[2022-07-19 11:20] LABS: Bilirubin, Urine Neg (Neg); Blood, Urine 5+ (Neg); Glucose Qualitative, Urine 3+ (Neg); Ketones, Urine Neg (Neg); Leukocyte Esterase, Urine Neg (Neg); Nitrite, Urine Neg (Neg); Protein, Urine 2+ (Neg); Urobilinogen, Urine NORM (Normal)
[2022-07-19 11:32] LABS: Appearance, Urine Hazy (Clear); Color, Urine Yellow (P-Yellow); Squamous Epithelial Cells Few /hpf (Few); White Blood Cells, Urine 0-2 /hpf (0-5)
[2022-07-19 11:33] LABS: Amorphous Mod (0-Heavy); Bacteria Rare /hpf
--- NOTE | 2022-07-19 12:15 | NUR ---
RECEIVED PT FROM ER VIA [facility] [employer]. PT APPEARS DROWSY, BUT AWAKENS TO VOICE. PT ORIENTED TO SELF AND FOLLOWS SOME SIMPLE COMMANDS. HX-CVA, DEMENTIA, HTN, DM 11, VATS TO LEFT LUNG, RIGHT LOBECTOMY, COPD, FORMER SMOKER AND [employer] USER. PT LIVES AT [facility]. PT HAS RESIDUAL LEFT SIDED WEAKNESS FROM HER STROKE AND IS OVERALL VERY WEAK. ECG SHOWS ST WITH RATE 120'S. SBP 100-110'S. DP/PT PULSES FAINT. NO NOTED EDEMA. LUNGS DIMINISHED IN THE BASES. RR 22-28. SATS>90% ON RA. ABDOMEN IS DISTENDED AND FIRM WITH HYPERACTIVE BT'S X 4. PT INCONTINENT OF A SMEAR OFR BROWN, PASTY STOOL. PENNIE CARE DONE AND DRY FLOW PADS PLACED TO BED. PT HAS SCATTERED BRUISES, BUT NO NOTED SKIN BREAKDOWN. CBG 256 INSULIN DRIP @ 4 UNITS/HR. PT FAMILY ORIENTED TO ROOM AND ICU PROCEDURE.
[2022-07-19 13:00] LABS: PCO2 Arterial 34.4 mmHg (35-45); PO2 Arterial 77.6 mmHg (80-100); pH Blood Arterial 7.33 (7.35-7.45)
--- NOTE | 2022-07-19 15:15 | NUR ---
CBG 167-INSULIN DRIP IS OFF. TEMP 101.2 HR TRENDING 130'S. MAPR TRENDING 60-65. DR. STEPHENSON AWARE AND FULL UPDATE GIVEN. PT IS PCU STATUS.
--- NOTE | 2022-07-19 16:00 | NUR ---
PT REMAINS FEBRILE AND TACHYCARDIC. MED WITH TYLENOL PO.
--- NOTE | 2022-07-19 18:05 | NUR ---
TEMP 101.2 DESPITE TYLENOL. HR 130'S SBP 70'S. DR. STEPHENSON GIVEN FULL UPDATE. LR 1000 CC BOLUS INITIATED.
[2022-07-19 21:07] LABS: PCO2 Arterial 30.9 mmHg (35-45); PO2 Arterial 70.2 mmHg (80-100); pH Blood Arterial 7.38 (7.35-7.45)
[2022-07-19 21:45] LABS: Albumin, Blood 1.8 g/dL (3.4-5.0); Anion Gap 12 mmol/L (6-16); Blood Urea Nitrogen 53 mg/dL (8-24); CO2, Blood 20 mmol/L (21-32); Chloride, Blood 112 mmol/L (98-108); Creatinine, Blood 1.04 mg/dL (0.40-1.00); Glomerular Filtration Rate 65 (60-); Glucose, Blood 212 mg/dL (70-99); Phosphorus, Blood 4.9 mg/dL (2.5-4.9); Sodium, Blood 144 mmol/L (136-145)
[2022-07-19 21:46] LABS: Calcium, Blood 7.2 mg/dL (8.5-10.1)
--- NOTE | 2022-07-19 21:56 | NUR ---
ASSUMPTION OF CARE REPORT GIVEN AT THE BEDSIDE WITHCATHERINE SILVER. PT IS PALE RESTING IN BED, ON ROOM AIR. PT HAS LR INFUSING ALONG WITH A SODIUM BICARB GTT AT 75 ML/HR. PT IS NO LOONGER ON AN INSULIN GTT. PT IS NOTED TO BE TACHYCARDIC AND BLOOD PRESSURES ARE SOFT. AROUND 2100 BP BECAME INADEQUATE. CALL WAS PLACED TO HOSPITALIST CHANDLER AND WAS GIVEN ORDERS FOR NS BOLUS AND INFUSION. DR. VALLE IS FOLLOWING THE CASE AND HE WAS GIVEN A CALL CONCERNING THIS AND HE AGREED WITH THIS TREATMENT BUT ALSO WOULD LIKE TO DECREASE THE BICARB DRIP TO 50 ML/HR. STAT ABG AND RFP ORDERED AND RESULTS CALLED TO DR. VALLE AT 2145. NO NEW ORDERS GIVEN AT THIS TIME. DR VALLE WOULD LIKE AN ABG TO FURTHER ASSESS HER IN THE AM. PT HAS A DOUBLE LUMED POWERGLIDE IN PLACE. DRESSING IS CDI AND LINE IS PATENT AND SECURE. ALANIS CATHETER IN PLACE IS NOTED TO HAVE URINE ACACIA IN COLOR AND LOTS OF SEDIMENT. PT ALSO HAVING SEVERE DIARRHEA AND IS HAVING EXCORIATION FROM THIS. RECTAL TUBE PLACED BY ANGELY SILVER. BROWN, LIQUID STOOL IS NOTED IN THE RECTAL TUBE. PT PROGNOSIS IS GUARDED AT THIS TIME DUE TO PT VITAL SIGNS AND PHYSICAL PRESENTATION.
--- NOTE | 2022-07-19 22:41 | NUR ---
CONTACT PROVIDER PT RECEIVED NS BOLUS PER DR ARTEAGA AND HAS NS @ 100 BUT PT CONTINUES TO DROP BLOOD PRESSURE. DR ARTEAGA NOTIFIED AT 2234 AND SPOKE TO HIM ABOUT THE PT/FAMILY WISHES AND POLST FORM THAT ALLOWS FOR ANTIBITOICS/FLUIDS BUT THE FAMILY WOULD NOT LIKE TO ADVANCE CARE AT THIS TIME, SUCH USING VASOPRESSORS. DR ARTEAGA ASKS TO GIVE PT AN ADDITIONAL 500ML NS BOLUS. PT STATES SHE HAS A HEADACHE. PT GIVEN PO TYLENOL FOR THIS. IF PT VITALS DO NOT IMPROVE THIS RN WILL CALL THE FAMILY AND UPDATE THEM ON THE SITUATION AND DETERMINE WHAT THEIR WISHES ARE FOR TREATMENT GOING FORWARD. CALLED RFP AND ABG RESULTS AT 2134. NO CHANGES OR FURTHER ORDERS RECEIVED. WILL CONTINUE TO MONITOR.
--- NOTE | 2022-07-19 23:45 | NUR ---
PROVIDER NOTIFICATION DR. ARTEAGA CONTACTED CONCERNING PT BP. PT WAS ORDERED ANOTHER 500 ML NS BOLUS. MD ALSO ORDERED MIDODRINE 2.5 MG TID, WITH FIRST DOSE STARTING NOW. DOSE GIVEN TO PT WITHOUT ISSUE. WILL CONTINUE TO MONITOR.
--- NOTE | 2022-07-20 01:16 | NUR ---
PROVIDER NOTIFICATIONDR. DR. LICEA CALLED CONCERNING PT BP CONTINUING TO DECLINE. PT 70S/50S AT THIS TIME. MD AGAIN ORDERED ANOTHER 500 NS BOLUS AND MENTIONED THE USE OF LEVOPHED. INFORMED MD THAT PT FAMILY DOES NOT WISH THE ESCALATE CARE. PT HAS EXISITING POLST THAT STATES PT DOES NOT WANT MEASURES OUTSIDE OF FLUIDS, ANTIBIOTICS ETC. WILL ADMINISTER THIS AND CONTINUE TO MONITOR.
[2022-07-20 03:59] LABS: Hematocrit 33.8 % (33.0-51.0); Hemoglobin 11.3 g/dL (11.5-16.0)
[2022-07-20 04:17] LABS: Albumin, Blood 1.8 g/dL (3.4-5.0); Anion Gap 11 mmol/L (6-16); Blood Urea Nitrogen 60 mg/dL (8-24); Bun/Creatinine Ratio 51.3 (12.0-20.0); CO2, Blood 18 mmol/L (21-32); Chloride, Blood 114 mmol/L (98-108); Creatinine, Blood 1.17 mg/dL (0.40-1.00); Glomerular Filtration Rate 56 (60-); Glucose, Blood 183 mg/dL (70-99); Magnesium, Blood 2.2 mg/dL (1.6-2.4); Potassium, Blood 4.8 mmol/L (3.5-5.5); Sodium, Blood 143 mmol/L (136-145)
--- NOTE | 2022-07-20 06:34 | NUR ---
SHIFT SUMMARY PT HAS BEEN TACHYCARDIC AND HYPOTENSIVE MOST OF THE NIGHT. PT HAS BEEN ON A BICARB DRIP PER DR VALLE TO CORRECT SOME METABOLIC ACIDOSIS. PT RECEIVED SEVERAL 500 ML NS BOLUSES THROUGHOUT THE NIGHT BECAUSE ACCORDING TO DOCTOR'S NOTES PT WAS NOT TO BE TREATED WITH VASOPRESSORS OR OTHER MEASURES OUTSIDE OF FLUIDS AND ANTIBIOTICS. CHARGE REACHED OUT TO STAFFING [facility] F[facility] WHERE SHE STAYS FOR COPY OF SAID POLST, BUT WERE UNABLE TO PROVIDE ONE. DAUGHTER, JOSE STEPHENSON, CALLED AND UPDATE WAS GIVEN. JOSE STATES SHE IS POA, BUT THERE IS NO DOCUMENTATION STATING THIS AT THIS TIME. EDUCATED DAUGHTER ON THE NEED FOR SIBLINGS TO COMMUNICATE AND DISCUSS GOALS OF CARE FOR THIS PATIENT AND CODE STATUS. CHARGE IS AWARE OF THIS CONCERN. PT HAS BEEN ALERT, BUT CONFUSED WHICH IS THIS PT'S BASELINE. PT VERY DECONDITIONED AND REQUIRES ASSISTANCE TURNING. ALANIS AND RECTAL TUBE IN PLACE. REPORT TO BE GIVEN TO DAYSHIFT NURSE WHEN AVAILABLE.
[2022-07-20 06:43] LABS: PCO2 Arterial 26.7 mmHg (35-45); PO2 Arterial 65.8 mmHg (80-100); pH Blood Arterial 7.38 (7.35-7.45)
--- NOTE | 2022-07-20 08:00 | NUR ---
PT AWAKE AND ALERT, BUT ORIENTED TO SELF ONLY. PT FOLLOWS SOME SIMPLE COMMANDS. LEFT SIDED WEAKNESS CONTINUES-THIS IS PT BASELINE. PT IS GENERALLY WEAK. ECG SHOWS ST WITH RATE 120'S. TEMP 99.9. MAP TRENDING >65. DP/PT PULSES FAINT. LUNGS DIMINISHED IN THE BASES. NO NOTED COUGH. SATS>90% ON RA. ABDOMEN REMAINS DISTENDED AND FIRM WITH HYPERACTIVE BT'S X 4. RECTAL TUBE CONTINUES TO DRAIN MODERATE AMOUNT OF BROWN, LIQUID STOOL. ALANIS WITH SMALL AMOUNT OF TEA COLORED URINE WITH SEDIMENT. SKIN TO ANUS AND BUTTOCKS SLIGHTLY RED-CALAZIME APPLIED AND PT REPOSITIONED TO LEFT SIDE OFF OF THE RED AREA. PT FAMILY UPDATED.
--- NOTE | 2022-07-20 10:15 | NUR ---
PT MOANING AND CRYING OUT. PT STATES "HELP ME! TAKE ALL THIS OFF!" PT PULLED OUT HER EXTENDED DWELL CATHETER AND BLOOD ALL OVER HER AND THE BED. PT GIVEN BED BATH AND LINEN CHANGE COMPLETED. PT CRYING DURING THE BATH AND LINEN CHANGE. PT STATES THAT SHE HURTS EVERYWHERE. DR. STEPHENSON GIVEN UPDATE. HE PLANS TO CALL THE FAMILY. THE PLAN IS TO TRANSITION PT TO COMFORT CARE TO HONOR HER POLST.
--- NOTE | 2022-07-20 12:05 | NUR ---
PT MOANING AND CRYING OUT "OUCH!" PT REPORTS 9/10 PAIN "ALL OVER!" MED WITH ROXANOL 5 MG SL X 1. PT REPOSITIONED TO COMFORT ON LEFT SIDE.
--- NOTE | 2022-07-20 12:15 | NUR ---
PT REPORTS NAUSEA. MED WITH ZOFRAN 4 MG IVP X 1 -SEE EMAR. NAUSEA ABATED AFTER APROXIMATELY 5 MINUTES.
--- NOTE | 2022-07-20 16:00 | NUR ---
DR. STEPHENSON SPOKE WITH BOTH PT DAUGHTER JOSE AND DAUGHTER IN LAW KAREN. THE DECISION WAS MADE TO HONOR PT CHICHI STATING HER DESIRE TO BE "COMFORT CARE." COMFORT CARE ORDERS PLACED BY DR. STEPHENSON. REPORT PHONED TO NADEEM WOODARD IN PREP TO TRANSFER PT TO ROOM 356.
--- NOTE | 2022-07-20 17:07 | NUR ---
Pt transferred to the medical floor. Diet is advance as tolerated.
--- NOTE | 2022-07-20 18:19 | NUR ---
Patient transferred from ICU to Medical floor. Comfort care orders in place, patient AOx2, reports severe pain from transferring beds. Fentynal patch placed on left chest. Zofran & Morphine given, PRNs effective. Martinez & rectal tubes in place, draining to gravity. Diet changed to advance as tolerated. Patient resting comfortably in bed.
--- NOTE | 2022-07-21 01:47 | NUR ---
LABS ORDERED FOR AM CANCELLED DUE TO CHANGE IN PATIENT STATUS TO COMFORT CARE.
--- NOTE | 2022-07-21 06:21 | NUR ---
NO CHANGES OVERNIGHT. PATIENT WOULD GRIMACE WHEN BEING TURNED AND CHANGED, BUT SOON WE WOULD FINISH, SHE WOULD ANSWER NO WHEN ASKED IF SHE WAS IN NEED OF PAIN MEDICINE. RECTAL TUBE WAS RE-SEATED AROUND 2400 THERE WAS STOOL LEAKING COPIOUSLY AROUND HER RECTUM. SOON BALLOON WAS DEFLATED STOOL BEGAN TO FLOW EXCLUSIVELY DOWN THE TUBE. 700 ML OF LIQUID BROWN STOOL WAS MEASURED OUT BEFORE BAG WAS CHANGED.
--- NOTE | 2022-07-21 10:50 | NUR ---
Spiritual Care Visit. Pt. is resting and non responsive. Am aware that pt. will be discharged to home hospice with [facility]. Prayed a blessing over Pt. Will remain available as needed.
--- NOTE | 2022-07-21 14:51 | NUR ---
Received call from Primary RN reporting daughter requesting Palliative Care visit. Pt resting in bed with her eyes closed. Pt appears comfortable with no S/S of distress at this time. Pt's daughter Carla at bedside. Offered active listening and answered questions. Offered emotional support as Carla is intermittently tearful. Carla expresses appreciation and reports no other concerns at this time. Palliative Care will remain available.
--- NOTE | 2022-07-21 16:21 | NUR ---
Patient resting in bed, this morning patient had tachypnea, RR 30/minute, Morphine liquid given for air hunger, PRN effective. Patient resting comfortably in bed, repositioned Q2H. Patient slept comfortably, breathing is relaxed. Patient does not respond to voice/touch, groans when repositioned in bed. Rectal tube leaking, bedpad saturated with liquid stool, removed rectal tube, large amount of liquid stool expelled from rectum. Martinez catheter patent, draining to gravity. Urine is dark/tea colored. Patient comfortable at this time, will continue to monitor.
--- NOTE | 2022-07-22 05:43 | NUR ---
DAUGHTER JOSE STAYED WITH [facility] WHO WAS ALMOST NON RESPONSIVE EVEN THROUGH REPOSITIONING AND BRIEF CHANGES. NO INDICATION OF ANY DISCOMFORT, FENTANYL PATCH SEEMS TO BE CARRYING HER VERY WELL. URINE DRAINING VIA ALANIS IS TEA COLORED, WHICH IS ACTUALLY LEATHER SKINNER THAN THE PREVIOUS NIGHT. INCONT OF ONE STOOL WHICH WAS MODERATE IN SIZE, AND MUCOUS AND LIQUID IN CONSISTANCE. ABD IS ROUND AND FIRM. DAUGHTER HOPING TO GET MORE INFORMATION ON WHAT BROUGHT HER MOTHER TO SUCH AN INCURABLE AND RAPID DECLINE. WILL CONTINUE TO MONITOR FOR COMFORT.
--- NOTE | 2022-07-22 17:42 | NUR ---
PT HAS NOT TALKED AND BEEN UNRESPONSIVE. PT TURNED Q2 HRS AND TREATED FOR PAIN PER EMAR. FAMILY IS AT BEDSIDE. CALL ALARM IS IN PLACE FOR FAMILY WILL CONTINUE TO MONITOR.
--- NOTE | 2022-07-22 19:30 | NUR ---
quilt and pillow given, oral care. Several visit to monitor symptoms and family. pt well medicated and family interacing.
--- NOTE | 2022-07-23 02:10 | NUR ---
PATIENT AT 0145. DAUGHTER, SONS AND DAUGHTER IN LAW WERE PRESENT AT TIME OF . WAS VERIFIED BY THIS RN AND TASHA WALSH RN. HOME OF CHOICE IS [facility].
--- NOTE | 2022-07-23 02:40 | NUR ---
PT FAMILY QUESTIONS R/T FMLA AND MISSING WORK D/T FAMILY . ADVISED THEY CONTACT THEIR INDIVIDUAL HR DEPARTMENTS AT THEIR JOBS FOR FURTHER INSTRUCTION.
--- NOTE | 2022-07-23 04:40 | NUR ---
PATIENT PICKED UP BY [facility] FOR [facility] AT [phone].
== END 2022-07-23 01:45 | DRG 871 ==
LOC: ER 05:47 → ICUW 10:39 → MEDS 10:39 → ICUW 12:20 → MEDS 07-20 16:11
PROVIDERS: Emergency Medicine; Internal Medicine Nephrology; ADMIT Family Medicine
DX: A41.9 Sepsis, unspecified organism (principal); E11.10 Type 2 diabetes mellitus with ketoacidosis without coma; N17.0 Acute kidney failure with tubular necrosis; D72.829 Elevated white blood cell count, unspecified; F03.90 Unspecified dementia, unspecified severity, without behavioral disturbance, psychotic disturbance, mood disturbance, and anxiety; F19.10 Other psychoactive substance abuse, uncomplicated; F41.8 Other specified anxiety disorders; Z66 Do not resuscitate; E11.65 Type 2 diabetes mellitus with hyperglycemia; K56.41 Fecal impaction; Z51.5 Encounter for palliative care; Z20.822 Contact with and (suspected) exposure to COVID-19; J44.9 Chronic obstructive pulmonary disease, unspecified; M54.9 Dorsalgia, unspecified; G89.29 Other chronic pain; F17.210 Nicotine dependence, cigarettes, uncomplicated; F15.10 Other stimulant abuse, uncomplicated; E86.0 Dehydration; D63.1 Anemia in chronic kidney disease; E86.9 Volume depletion, unspecified; E11.22 Type 2 diabetes mellitus with diabetic chronic kidney disease; I12.9 Hypertensive chronic kidney disease with stage 1 through stage 4 chronic kidney disease, or unspecified chronic kidney disease; N18.2 Chronic kidney disease, stage 2 (mild); E88.09 Other disorders of plasma-protein metabolism, not elsewhere classified; R94.5 Abnormal results of liver function studies; D89.2 Hypergammaglobulinemia, unspecified; Z88.5 Allergy status to narcotic agent; Z98.51 Tubal ligation status; Z98.890 Other specified postprocedural states; Z88.2 Allergy status to sulfonamides; Z79.899 Other long term (current) drug therapy; Z86.73 Personal history of transient ischemic attack (TIA), and cerebral infarction without residual deficits; Z79.4 Long term (current) use of insulin; Z79.84 Long term (current) use of oral hypoglycemic drugs; Z79.51 Long term (current) use of inhaled steroids; Z79.891 Long term (current) use of opiate analgesic
CPT/HCPCS: 0241U; 36415; 36600; 51702; 71045; 73502; 74177; 80053; 80069; 81001; 82010; 82803; 82947; 83605; 83735; 85014; 85018; 85025; 87040; 87086; 93005; 93010; 96361-59; 96365-59; 96375-59; 99285-25; A9270; C1751; J1644; J1815; J2405; J2543; J3010; J3370; J7030; J7040; J7042; J7050; J7120; Q9967